=== PATIENT | female | born 1995 | race Caucasian/White ===

== ENCOUNTER → 2016-11-16 07:35 | Outpatient (CLI) | payer MEDICAID ==
[2016-11-16 08:22] LABS: BASOPHILS 0.1 % (0-2); EOSINOPHILS 1.5 % (0-7); HEMOGLOBIN 11.8 g/dL (12-16); IMMATURE GRANULOCYTES 0.3 % (0-5); LYMPHOCYTES 25.4 % (15-50); MCH 30.4 pg (26.0-34.0); MCHC 33.7 g/dL (31.0-37.0); MCV 90.2 fL (80.0-100.0); MEAN PLATELET VOLUME 10.3 fL (7.4-10.4); MONOCYTES 9.8 % (2-11); NEUTROPHILS 62.9 % (40-80); RBC 3.88 10x6/uL (4.00-5.40); RDW 13.4 % (11.5-14.5); WBC 10.2 10x3/uL (4.8-10.8)
[2016-11-16 08:28] LABS: PLATELET COUNT 203 10x3/uL (130-400)
[2016-11-16 08:33] LABS: COLOR YELLOW (YELLOW)
[2016-11-16 08:34] LABS: APPEARANCE HAZY (CLEAR); BILIRUBIN NEGATIVE (NEGATIVE); GLUCOSE NEGATIVE (NEGATIVE); KETONE NEGATIVE (NEGATIVE); LEUKOCYTE ESTERASE 2+ (NEGATIVE); NITRITE POSITIVE (NEGATIVE); PH 5.5 (5.0-6.0); PROTEIN TRACE mg/dL (NEGATIVE); SPECIFIC GRAVITY 1.015 (1.005-1.020); UROBILINOGEN NORMAL (NORMAL)
[2016-11-16 08:39] LABS: BACTERIA MANY /hpf (NONE SEEN); EPITHELIAL CELLS OCC /hpf (0-5); HYALINE CAST RARE /lpf (NONE SEEN); RED CELLS - URINE 0-5 /hpf (0-5); WHITE CELLS - URINE >50 /hpf (0-5)
[2016-11-16 08:41] LABS: UDS - AMPHET POSITIVE QUAL (NEGATIVE); UDS - BARB NEGATIVE QUAL (NEGATIVE); UDS - BENZO NEGATIVE QUAL (NEGATIVE); UDS - COCAINE NEGATIVE QUAL (NEGATIVE); UDS - METH NEGATIVE QUAL (NEGATIVE); UDS - OPIATE NEGATIVE QUAL (NEGATIVE); UDS - PCP NEGATIVE QUAL (NEGATIVE); UDS - THC NEGATIVE QUAL (NEGATIVE)
== END | disposition home or self-care (01) ==
LOC: D.LDO 07:35
PROVIDERS: Obstetrics & Gynecology
DX: Z34.93 Encounter for supervision of normal pregnancy, unspecified, third trimester (principal); Z3A.39 39 weeks gestation of pregnancy; R10.9 Unspecified abdominal pain

== ENCOUNTER 2016-11-30 22:47 | Outpatient (CLI) | payer MEDICAID ==
[2016-11-30 23:28] LABS: APPEARANCE HAZY (CLEAR); BACTERIA MANY /hpf (NONE SEEN); BILIRUBIN NEGATIVE (NEGATIVE); COLOR YELLOW (YELLOW); EPITHELIAL CELLS NSEEN /hpf (0-5); GLUCOSE NEGATIVE (NEGATIVE); KETONE NEGATIVE (NEGATIVE); LEUKOCYTE ESTERASE 1+ (NEGATIVE); NITRITE POSITIVE (NEGATIVE); PROTEIN NEGATIVE (NEGATIVE); RED CELLS - URINE NONE SEEN /hpf (0-5); UDS - AMPHET POSITIVE QUAL (NEGATIVE); UDS - BARB NEGATIVE QUAL (NEGATIVE); UDS - BENZO NEGATIVE QUAL (NEGATIVE); UDS - COCAINE NEGATIVE QUAL (NEGATIVE); UDS - METH NEGATIVE QUAL (NEGATIVE); UDS - OPIATE NEGATIVE QUAL (NEGATIVE); UDS - PCP NEGATIVE QUAL (NEGATIVE); UDS - THC NEGATIVE QUAL (NEGATIVE); UROBILINOGEN NORMAL (NORMAL)
== END 2016-12-01 01:03 | disposition home or self-care (01) ==
LOC: D.LDO 22:47 → D.LD 23:29 → D.LDO 12-01 01:03
PROVIDERS: Obstetrics & Gynecology
DX: O26.893 Other specified pregnancy related conditions, third trimester (principal); Z3A.36 36 weeks gestation of pregnancy

== ENCOUNTER 2016-12-21 05:31 | Inpatient (IN) | payer MEDICAID ==
[~2016-12-21] VITALS: Ht 165.1 cm; Wt 72.6 kg
[2016-12-21] MEDS ORDERED: PRENAVITE1 TAB PO (05:41)
[2016-12-21 05:47] VITALS: BP 112/78; Ht 165.1 cm; Wt 72.6 kg
[2016-12-21 06:11] LABS: HEMATOCRIT 41.7 % (36.0-48.0); HEMOGLOBIN 14.1 g/dL (12-16); MCH 29.6 pg (26.0-34.0); MCHC 33.8 g/dL (31.0-37.0); MCV 87.6 fL (80.0-100.0); MEAN PLATELET VOLUME 11.5 fL (7.4-10.4); RBC 4.76 10x6/uL (4.00-5.40); RDW 13.8 % (11.5-14.5); WBC 11.8 10x3/uL (4.8-10.8)
[2016-12-21 07:32] LABS: UDS - AMPHET POSITIVE QUAL (NEGATIVE); UDS - BARB NEGATIVE QUAL (NEGATIVE); UDS - BENZO NEGATIVE QUAL (NEGATIVE); UDS - COCAINE NEGATIVE QUAL (NEGATIVE); UDS - METH NEGATIVE QUAL (NEGATIVE); UDS - OPIATE NEGATIVE QUAL (NEGATIVE); UDS - PCP NEGATIVE QUAL (NEGATIVE); UDS - THC NEGATIVE QUAL (NEGATIVE)
[2016-12-21 13:44] VITALS: BP 130/76
--- NOTE | 2016-12-21 13:45 | NUR ---
vs done. pt states she would like to sleep for a bit. ambulated to 1278- tolerated well.
--- NOTE | 2016-12-21 15:09 | NUR ---
LATE ENTRY 0945 CM RECEIVED A TELEPHONE CALL FROM THE HOSPITAL TRAVEL SERVICES PROFESSIONAL. SHE HAD A MR HECTOR DAVIS ON THE PHONE REGARDING ASUNCION POWELL AND HER . SHE TRANSFERED HIM TO THE . I EXPLAINED I COULD NOT GIVE ANY INFORMATION REGARDING PATIENTS DUE TO THE HIPPA LAWS. HE IS AWARE OF HIPPA. HE STATED HE KNEW SHE HAD DELIVERED HER BABY AND SHE HAD BEEN TAKING DRUGS. HE WANTED TO KNOW WHAT DRUGS WERE FOUND. HE STATED HE AND HIS WERE ADOPTING THE BABY. CM ADVISED IF HE WAS AN ADOPTING PARENT THE HOSPITAL WOULD NEED A COPY OF THEIR PAPERWORK AND CONTACT FROM HIS WAREHOUSE HAND. CM DID NOT CONFIRM OR DENY PATIENT'S PRESENCE OR A DELIVERY. HE STATED HE WAS TRYING TO GET A HOLD OF HIS WAREHOUSE HAND BUT IT WAS DIFFICULT BECAUSE IT WAS A THURSDAY. HE SAID OKAY. CM CALLED THE NURSING POSITION CLASSIFICATION SPECIALIST, DARSHANA TO ADVISE OF ABOVE. SHE REPORTEDLY HAD RECEIVED SOME INFORMATION IN HER AM REPORT. CM SPOKE WITH THE [facility] NURSE, SHALINI. SHE HAD NOT HAD AN OPPORTUNITY TO DOCUMENT BUT STATED THE L&D NURSES WOULD HAVE AN UPDATE. 1430 NO DOCUMENTATION TO CIRCUMSTANCE IN [facility]. TC TO L&D. THEY HAVE A DIFFERENT SYSTEM TO DOCUMENT IN. NURSE STATED CM COULD COME TO REVIEW NOTES. CM TO L&D. UNABLE TO REVIEW NOTES. WILL REFER ANY FURTHER QUESTIONS OR CALLS TO L&D OR NURSING POSITION CLASSIFICATION SPECIALIST.
--- NOTE | 2016-12-21 15:09 | NUR ---
up to bathroom- voided lg amt. pericare with betadine and warm water teaching done. pt requesting pain medication for pain lower back.
--- NOTE | 2016-12-21 16:25 | NUR ---
HOSPITAL FERMENTING CELLAR DROPPER CALLED ASKING IF PATIENT IS CONFIDENTIAL AND IF PHONE CALL FROM "[employer] PARENTS" CAN BE FORWARDED. ASKED PATIENT IF SHE WANTS TO BE CONFIDENTIAL STATES "NO". ASKED PATIENT IF IT IS OK IF SHE RECEIVE CALLS FROM THESE PEOPLE STATES "I JUST TALKED TO THEM ON FACEBOOK". ASKED PATIENT AGAIN IF THEY WILL ACCEPT CALLS, STATES "YES". HOSPITAL FERMENTING CELLAR DROPPER NOTIFIED THAT IT IS OK BY PATIENT THAT SHE RECEIVE PHONE CALLS, INCLUDING ABOVE.
[2016-12-21 18:10] VITALS: BP 133/88
--- NOTE | 2016-12-21 18:14 | NUR ---
sitting up in bed holding . vs done. states that pain in back is better since ibuprofen. rates pain a 3 on scale of 0-10.
--- NOTE | 2016-12-21 19:30 | NUR ---
PT. SITTING UP IN BED. ASSESSMENT DONE. SALINE LOCK NOTED IN LT FOREARM, FUNDUS FIRM U/1 AND LOCHIA RUBRA MOD. PT. RATES PAIN A 0. RELATES THAT SHE HAS BEEN HUNGRY ALL DAY. REVIEWED WITH PT. NOURISHMENTS AVAILABLE. BREATH SOUNDS CLEAR AND BOWEL SOUNDS AUDIBLE.
--- NOTE | 2016-12-21 19:45 | NUR ---
CRACKERS GIVEN WITH PEANUT BUTTER AND ICE CREAM SERVED. MALE IN ROOM WITH PT. PT. STATES SHE DESIRES TO SLEEP PRIOR TO RETURNING TO ROOM.
--- NOTE | 2016-12-21 21:06 | NUR ---
LYING IN BED HOLDING . PT. DENIES ANY NEEDS. MALE VISITOR IN SHOWER.
--- NOTE | 2016-12-21 21:30 | NUR ---
LYING IN BED ON LT SIDE WITH BESIDE HER IN BED. MILK OF MAGNESIA GIVEN ORDERED. PT. DENIES ANY NEEDS.
[2016-12-21 21:31] VITALS: BP 122/70
--- NOTE | 2016-12-21 22:31 | NUR ---
AMBULATORY OFF UNIT.
--- NOTE | 2016-12-21 23:32 | NUR ---
REQUESTING LEMON [place] DRINK . SAME SERVED. PT. WITH LYING BESIDE HER IN BED. PT. AWAKE AND ORIENTED. DENIES ANY PAIN. MALE LYING ON SOFA.
--- NOTE | 2016-12-22 00:20 | NUR ---
MAN TO DESK STATING HE IS FATHER TO ASUNCION. DIRECTED TO ROOM.
--- NOTE | 2016-12-22 01:08 | NUR ---
PT CALLS VIA CL REQUESTING SPRITE AND ICE. RN TO BEDSIDE WITH SODA. MALE VISITOR WHO STATES THAT HE IS THE FOB IS LAYING IN BED WITH PT. A SECOND MALE VISITOR IS SITTING IN CHAIR AT BEDSIDE WATCHING TV. PT ASKS WHAT OTHER DRINKS AND SNACKS ARE AVAILABLE FOR HER AND HER VISITORS. RN INFORMED PT THAT DRINKS AND SNACKS ARE FOR PATIENT'S ONLY AND NOT FOR VISITORS. INSTRUCTED BOTH MALE VISITORS ON VENDING MACHINE LOCATIONS WITH UNDERSTANDIND VERBALIZED. PT DENIES PAIN AND ADDITIONAL NEEDS AT THIS TIME. IN PT ARMS. BED IN LOW POSITIOIN WITH UPPER SIDE RAILS RAISED X2. CL AND PHONE WITHIN REACH. WILL CONT TO MONITOR AND ASSIST PRN.
--- NOTE | 2016-12-22 02:20 | NUR ---
PT. LYING IN BED WITH MALE . PT. WITH EYES CLOSED AND RESPIRATIONS REGULAR. LIGHTS REMAIN ON IN ROOM AND TV PLAYING.
--- NOTE | 2016-12-22 05:00 | NUR ---
SITTING UP IN BED CHANGING . CHEERFUL. DENIES ANY PAIN NOR ANY NEEDS.
--- NOTE | 2016-12-22 05:25 | NUR ---
PT. REQUESTING SOMETHING TO EAT. CRACKERS AND PUDDING GIVEN. PT. WITH UNWRAPPED AND ATTEMPTING TO RECOVER . INQUIRED WHERE INFANT HAT WAS SINCE WAS NOT ON HEAD. INFORMED PT. THAT ROOM WAS TOO COLD FOR . PT. REMARKS " I AM COLD TOO." THERMOSTAT IN ROOM SET ON 65. TEMP. RESET TO 72 DEGREES. EXPLAINED IMPORTANCE OF KEEPING INFANT COVERED AND WARM. PT. STATED UNDERSTANDING.
[2016-12-22 05:44] LABS: HEMATOCRIT 39.9 % (36.0-48.0); HEMOGLOBIN 13.1 g/dL (12-16); MCH 29.4 pg (26.0-34.0); MCHC 32.8 g/dL (31.0-37.0); MEAN PLATELET VOLUME 11.3 fL (7.4-10.4); RBC 4.45 10x6/uL (4.00-5.40); WBC 12.3 10x3/uL (4.8-10.8)
[2016-12-22 05:49] LABS: MCV 89.7 fL (80.0-100.0)
[2016-12-22 07:28] VITALS: BP 120/71
--- NOTE | 2016-12-22 07:30 | NUR ---
ASSESSMENT DONE. PT SITTING UP IN BED HOLDING . PT REQUESTING THAT INFANT GO TO NURSERY SO SHE CAN SLEEP A BIT. CO CRAMPING AND REQUESTS IBUPROFEN- RATES PAIN A 6 ON SCALE OF 0-10. FUNDUS U2/FIRM. MOD LOCHIA NOTED ON PAD- PT STATES SHE HAS NOT CHANGED HER PAD IN A BIT.
--- NOTE | 2016-12-22 07:40 | OP ---
PATIENT NAME: ASUNCION POWELL MEDICAL RECORD: [id number] :93 LOCATION:[facility] ADMISSION DATE:12/21/16 SURGEON: BOYD CHUN MD DATE OF OPERATION: 12/21/2016 Delivery Note Spontaneous vaginal delivery of female weighing 6 pounds 14-1/2 ounces, 8 and 9 Apgars. No episiotomy, no laceration. Epidural anesthesia. Cord pH drawn and pending. ESTIMATED BLOOD LOSS: 400 cc. COMPLICATIONS OF DELIVERY: None. TRANSINT:[id number] Voice Confirmation ID: [id number] DOCUMENT ID: [id number] BOYD CHUN MD at 0740 CC: [id number] DICTATION DATE: 12/21/1634 ANIMAL CARETAKER: 12/21/16 1119 ADM IN [place] [id number] [place] [address]
--- NOTE | 2016-12-22 07:45 | NUR ---
DR CHUN IN UNIT TO SEE PT.
--- NOTE | 2016-12-22 10:15 | NUR ---
Excuse to prove pt was a patient at this time faxed to Judge Castaneda, [address], attn to Jailene.
--- NOTE | 2016-12-22 10:30 | NUR ---
Verbal and written d/c instructions gone over with pt. written script provided for Motrin 600mg and Sprintec 3 packages with instructions on each. Denies any questions about instructions. She does have questions about hold per DHS and rooming in options. Tita Rivers rn from nursery notified and will address questions about infant. Rooming in paper work given so that pt can read over.
--- NOTE | 2016-12-22 11:00 | NUR ---
READ ROOMING IN FORM TO MOTHER THEN MOTHER INDICATED SHE UNDERSTOOD INSTRUCTIONS AND SIGNED FORM AND GAVE PHONE NUMBERS ON HOW SHE MAY BE REACHED. REMINDED MOTHER SHE MAY NOT LEAVE PREMISES.
--- NOTE | 2016-12-22 15:28 | NUR ---
Patient Name: MACEY POWELL Admission Status: Accout number: [id number] Admission Date: 12-21-2016 : 12-21-2016 Admission Diagnosis: Attending: RUDDY CALVILLO Current LOS: 1 Anticipated DC Date: 12-23-2016 Planned Disposition: [facility] Custody Primary Insurance: MEDICAID [place] PENDING Baby's Full Name: Bradley Powell MOB: Mary Powell FOB: Brien Bates [facility] has been consulted by nursery staff. Interview has been completed. Assigned Lieutenant Fire Fighter is Rosana Harmon - [phone] ext. [phone] or [phone]. [facility] will assume custody of at discharge. CM met with both MOB & FOB. MOB keeps her eyes closed while answering questions with short responses. FOB at bedside - he is answers most questions. MOB lives states she lives with her sister. She states she has two other children, ages 5 & 6, that live with their maternal grandmother, but reports her aunt, Mari Mtaa, has legal custody of them. FOB states her home is a safe environment with all working utilities. FOB reports she has adequate transportation. She states she plans to sign up for WIC & section 8 housing after discharge. FOB states he has been in communication with [facility] Lieutenant Fire Fighter, Rosana Harmon. He is hoping they can obtain custody of soon. Answered questions. CM will follow. Engine Dynamometer Tester: Caitlin Weems
[2016-12-23 07:25] LABS: RAPID PLASMA REAGIN Non Reactive (Non Reactive)
== END 2016-12-22 16:00 | disposition home or self-care (01) | DRG 775 ==
LOC: D.LD 05:31
PROVIDERS: ADMIT Obstetrics & Gynecology
PROC: 10E0XZZ Delivery of Products of Conception, External Approach (ICD-10-PCS; principal; 2016-12-21)
DX: O99.324 Drug use complicating childbirth (principal); F15.90 Other stimulant use, unspecified, uncomplicated; Z3A.40 40 weeks gestation of pregnancy; Z37.0 Single live birth

== ENCOUNTER 2017-07-06 02:19 | Emergency (ER) | payer MEDICAID ==
[2016-12-21 05:47] VITALS: BMI 22.0
[~2017-07-06 02:19] MED LIST: PRENAVITE1 TAB PO
== END 2017-07-06 03:04 | disposition home or self-care (01) ==
LOC: D.ER 02:19
DX: L02.31 Cutaneous abscess of buttock (principal)

== ENCOUNTER 2017-08-01 02:35 | Emergency (ER) | payer SELFPAY ==
[2016-12-21 05:47] VITALS: BMI 22.0
[2017-08-01 03:36] LABS: HCG URINE POSITIVE (NEGATIVE)
== END 2017-08-01 04:06 | disposition home or self-care (01) ==
LOC: D.ER 02:35
PROVIDERS: Family Medicine
DX: S00.03XA Contusion of scalp, initial encounter (principal); X58.XXXA Exposure to other specified factors, initial encounter; Y93.55 Activity, bike riding; Y92.410 Unspecified street and highway as the place of occurrence of the external cause; S00.01XA Abrasion of scalp, initial encounter; S01.01XA Laceration without foreign body of scalp, initial encounter; S06.0X9A Concussion with loss of consciousness of unspecified duration, initial encounter; F17.200 Nicotine dependence, unspecified, uncomplicated; Z33.1 Pregnant state, incidental

== ENCOUNTER 2017-08-17 11:29 | Emergency (ER) | payer SELFPAY ==
[2016-12-21 05:47] VITALS: BMI 22.0
== END 2017-08-17 13:38 | disposition home or self-care (01) ==
LOC: D.ER 11:29
DX: J01.90 Acute sinusitis, unspecified (principal)

== ENCOUNTER 2017-11-01 12:10 | Emergency (ER) | payer MEDICAID ==
[~2017-11-01] VITALS: Ht 165.1 cm; Wt 59.1 kg
[2017-11-01 12:12] VITALS: Ht 165.1 cm; Wt 59.1 kg
[2017-11-01 12:46] LABS: BASOPHILS 0.1 % (0-2); EOSINOPHILS 0.6 % (0-7); HEMATOCRIT 36.9 % (36.0-48.0); HEMOGLOBIN 12.6 g/dL (12-16); IMMATURE GRANULOCYTES 0.3 % (0-5); LYMPHOCYTES 23.4 % (15-50); MCHC 34.1 g/dL (31.0-37.0); MCV 90.9 fL (80.0-100.0); MEAN PLATELET VOLUME 9.6 fL (7.4-10.4); MONOCYTES 7.8 % (2-11); NEUTROPHILS 67.8 % (40-80); PLATELET COUNT 212 10x3/uL (130-400); RBC 4.06 10x6/uL (4.00-5.40); RDW 14.5 % (11.5-14.5); WBC 14.5 10x3/uL (4.8-10.8)
[2017-11-01 12:59] LABS: ALBUMIN 2.7 g/dL (3.4-5.0); ALKALINE PHOSPHATASE 89 U/L (46-116); ALT (SGPT) 14 U/L (10-68); BILIRUBIN - TOTAL 0.61 mg/dL (0.2-1.3); CALC OSMOLALITY 267 mosm/kg (275-300); CALCIUM 8.4 mg/dL (8.5-10.1); CHLORIDE - SERUM 104 mmol/L (98-107); CREATININE - SERUM 0.6 mg/dL (0.6-1.3); GLUCOSE 80 mg/dL (74-106); POTASSIUM - SERUM 3.9 mmol/L (3.5-5.1); PROTEIN - SERUM 6.6 g/dL (6.4-8.2); SODIUM 135 mmol/L (136-145); UREA NITROGEN 11 mg/dL (7-18); eGFR NON AFRICAN AMERICAN > 90 mL/min (90-120)
[2017-11-01 13:02] LABS: APPEARANCE TURBID (CLEAR); COLOR YELLOW (YELLOW); GLUCOSE NEGATIVE (NEGATIVE); KETONE NEGATIVE (NEGATIVE); NITRITE NEGATIVE (NEGATIVE); PH 6.5 (5.0-6.0); PROTEIN 3+ mg/dL (NEGATIVE); SPECIFIC GRAVITY 1.015 (1.005-1.020); UROBILINOGEN NORMAL (NORMAL)
[2017-11-01 13:03] LABS: BILIRUBIN NEGATIVE (NEGATIVE)
[2017-11-01 13:06] LABS: BACTERIA MODERATE /hpf (NONE SEEN); EPITHELIAL CELLS RARE /hpf (0-5); WHITE CELLS - URINE >50 /hpf (0-5)
[2017-11-01 13:53] LABS: UDS - AMPHET POSITIVE QUAL (NEGATIVE); UDS - BARB NEGATIVE QUAL (NEGATIVE); UDS - BENZO NEGATIVE QUAL (NEGATIVE); UDS - COCAINE POSITIVE QUAL (NEGATIVE); UDS - OPIATE NEGATIVE QUAL (NEGATIVE); UDS - PCP NEGATIVE QUAL (NEGATIVE); UDS - THC NEGATIVE QUAL (NEGATIVE)
[2017-11-01 14:19] LABS: APPEARANCE TURBID (CLEAR); BILIRUBIN NEGATIVE (NEGATIVE); COLOR YELLOW (YELLOW); GLUCOSE NEGATIVE (NEGATIVE); KETONE SMALL mg/dL (NEGATIVE); NITRITE NEGATIVE (NEGATIVE); PROTEIN 3+ mg/dL (NEGATIVE); SPECIFIC GRAVITY 1.015 (1.005-1.020); UROBILINOGEN NORMAL (NORMAL)
[2017-11-01 14:23] LABS: BACTERIA MODERATE /hpf (NONE SEEN); EPITHELIAL CELLS OCC /hpf (0-5); WHITE CELLS - URINE >50 /hpf (0-5)
[2017-11-01] MEDS ORDERED: MACROBID100 MG PO (14:42)
[2017-11-01 15:18] VITALS: BP 114/78
== END 2017-11-01 15:18 | disposition home or self-care (01) ==
LOC: D.ER 12:10
PROVIDERS: Emergency Medicine
DX: O23.42 Unspecified infection of urinary tract in pregnancy, second trimester (principal); Z3A.00 Weeks of gestation of pregnancy not specified; F15.10 Other stimulant abuse, uncomplicated; F14.10 Cocaine abuse, uncomplicated; N28.89 Other specified disorders of kidney and ureter; R31.9 Hematuria, unspecified; R10.2 Pelvic and perineal pain; R30.0 Dysuria

== ENCOUNTER → 2017-12-30 18:09 | Outpatient (CLI) | payer MEDICAID ==
[2017-11-01 12:12] VITALS: BMI 21.6
[~2017-12-30 18:09] MED LIST changes: +MACROBID100 MG PO
[2017-12-30 19:34] LABS: UDS - AMPHET POSITIVE QUAL (NEGATIVE); UDS - BARB NEGATIVE QUAL (NEGATIVE); UDS - BENZO NEGATIVE QUAL (NEGATIVE); UDS - COCAINE NEGATIVE QUAL (NEGATIVE); UDS - OPIATE NEGATIVE QUAL (NEGATIVE); UDS - PCP NEGATIVE QUAL (NEGATIVE); UDS - THC NEGATIVE QUAL (NEGATIVE)
[2017-12-30 19:36] LABS: APPEARANCE CLEAR (CLEAR); BILIRUBIN NEGATIVE (NEGATIVE); COLOR YELLOW (YELLOW); GLUCOSE NEGATIVE (NEGATIVE); KETONE NEGATIVE (NEGATIVE); NITRITE NEGATIVE (NEGATIVE); PROTEIN NEGATIVE (NEGATIVE); SPECIFIC GRAVITY 1.015 (1.005-1.020); UROBILINOGEN NORMAL (NORMAL)
[2017-12-30 19:37] LABS: BACTERIA FEW /hpf (NONE SEEN); EPITHELIAL CELLS OCC /hpf (0-5); WHITE CELLS - URINE 0-5 /hpf (0-5)
== END | disposition home or self-care (01) ==
LOC: D.LDO 18:09
PROVIDERS: Obstetrics & Gynecology
DX: O26.899 Other specified pregnancy related conditions, unspecified trimester (principal); Z3A.00 Weeks of gestation of pregnancy not specified; R10.30 Lower abdominal pain, unspecified; M54.5 Low back pain

== ENCOUNTER → 2018-01-30 19:30 | Outpatient (CLI) | payer MEDICAID ==
[2017-11-01 12:12] VITALS: BMI 21.6
[2018-01-30 19:54] LABS: APPEARANCE CLEAR (CLEAR); BILIRUBIN NEGATIVE (NEGATIVE); COLOR YELLOW (YELLOW); GLUCOSE NEGATIVE (NEGATIVE); KETONE NEGATIVE (NEGATIVE); NITRITE NEGATIVE (NEGATIVE); PROTEIN NEGATIVE (NEGATIVE); UROBILINOGEN NORMAL (NORMAL)
[2018-01-30 20:06] LABS: UDS - AMPHET NEGATIVE QUAL (NEGATIVE); UDS - BARB NEGATIVE QUAL (NEGATIVE); UDS - BENZO NEGATIVE QUAL (NEGATIVE); UDS - COCAINE NEGATIVE QUAL (NEGATIVE); UDS - OPIATE NEGATIVE QUAL (NEGATIVE); UDS - PCP NEGATIVE QUAL (NEGATIVE); UDS - THC NEGATIVE QUAL (NEGATIVE)
== END | disposition home or self-care (01) ==
LOC: D.LDO 19:30
PROVIDERS: Obstetrics & Gynecology
DX: O26.893 Other specified pregnancy related conditions, third trimester (principal); Z3A.31 31 weeks gestation of pregnancy

== ENCOUNTER 2018-03-06 21:21 | Outpatient (CLI) | payer MEDICAID ==
[2017-11-01 12:12] VITALS: BMI 21.6
[2018-03-06 21:49] LABS: APPEARANCE CLEAR (CLEAR); BILIRUBIN NEGATIVE (NEGATIVE); COLOR YELLOW (YELLOW); GLUCOSE NEGATIVE (NEGATIVE); KETONE NEGATIVE (NEGATIVE); NITRITE NEGATIVE (NEGATIVE); PROTEIN NEGATIVE (NEGATIVE); UROBILINOGEN NORMAL (NORMAL)
[2018-03-06 21:53] LABS: BACTERIA FEW /hpf (NONE SEEN); RED CELLS - URINE 0-5 /hpf (0-5); WHITE CELLS - URINE 0-5 /hpf (0-5)
[2018-03-06 22:14] LABS: UDS - AMPHET POSITIVE QUAL (NEGATIVE); UDS - BARB NEGATIVE QUAL (NEGATIVE); UDS - BENZO NEGATIVE QUAL (NEGATIVE); UDS - COCAINE NEGATIVE QUAL (NEGATIVE); UDS - OPIATE NEGATIVE QUAL (NEGATIVE); UDS - PCP NEGATIVE QUAL (NEGATIVE); UDS - THC NEGATIVE QUAL (NEGATIVE)
[2018-03-06 23:42] LABS: BASOPHILS 0.2 % (0-2); EOSINOPHILS 1.2 % (0-7); HEMATOCRIT 34.7 % (36.0-48.0); HEMOGLOBIN 11.6 g/dL (12-16); IMMATURE GRANULOCYTES 0.1 % (0-5); LYMPHOCYTES 29.5 % (15-50); MCH 29.2 pg (26.0-34.0); MCHC 33.4 g/dL (31.0-37.0); MCV 87.4 fL (80.0-100.0); MEAN PLATELET VOLUME 10.4 fL (7.4-10.4); MONOCYTES 12.9 % (2-11); NEUTROPHILS 56.1 % (40-80); PLATELET COUNT 183 10x3/uL (130-400); RBC 3.97 10x6/uL (4.00-5.40); RDW 14.3 % (11.5-14.5); WBC 8.1 10x3/uL (4.8-10.8)
[2018-03-07] MEDS ORDERED: PRENAVITE1 TAB PO (01:32)
== END 2018-03-07 01:41 | disposition home or self-care (01) ==
LOC: D.LDO 21:21 → D.LD 23:15 → D.LDO 03-07 01:41
PROVIDERS: Obstetrics & Gynecology
DX: O26.899 Other specified pregnancy related conditions, unspecified trimester (principal); Z3A.00 Weeks of gestation of pregnancy not specified

== ENCOUNTER 2018-03-29 13:52 | Inpatient (IN) | payer MEDICAID ==
[2018-03-29] VITALS (10 sets, daily range): BP systolic 106–141; BP diastolic 67–92; Ht 165.1 cm; Wt 79.4 kg
[~2018-03-29] VITALS: Ht 165.1 cm; Wt 79.4 kg
[2018-03-29 14:32] LABS: HEMATOCRIT 37.4 % (36.0-48.0); HEMOGLOBIN 12.4 g/dL (12-16); MCHC 33.2 g/dL (31.0-37.0); MCV 84.4 fL (80.0-100.0); MEAN PLATELET VOLUME 11.9 fL (7.4-10.4); RBC 4.43 10x6/uL (4.00-5.40); RDW 14.3 % (11.5-14.5); WBC 9.5 10x3/uL (4.8-10.8)
[2018-03-29 14:36] LABS: UDS - AMPHET POSITIVE QUAL (NEGATIVE); UDS - BARB NEGATIVE QUAL (NEGATIVE); UDS - BENZO NEGATIVE QUAL (NEGATIVE); UDS - COCAINE NEGATIVE QUAL (NEGATIVE); UDS - OPIATE NEGATIVE QUAL (NEGATIVE); UDS - PCP NEGATIVE QUAL (NEGATIVE); UDS - THC NEGATIVE QUAL (NEGATIVE)
--- NOTE | 2018-03-29 17:41 | NUR ---
EPIDURAL REMAINS IN PLACE. DERMATOME AT T6 B/L.
--- NOTE | 2018-03-29 17:50 | NUR ---
PATIENT REFUSING TO LEAVE MONITORING EQUIPMENT IN PLACE. STATES "I CAN'T BREATHE" AND APPEARS ANXIOUS. REAPPLIED PULSE OX, SAT 98% ON RA BREATH SOUNDS ARE CLEAR BILATERALLY. ATTEMPTED TO EDUCATE PATIENT ON SLOW BREATHING TECHNIQUES WHEN SHE STATED "I CAN'T FUCKING BREATHE SO UNLESS YOU ARE GOING TO GIVE ME SOME AIR THEN GET THE FUCK OUT OF MY ROOM AND GO FIND SOMEONE WHO WILL HELP ME". DR IGLESIAS AT THE BEDSIDE SPEAKING WITH PATIENT AT THIS TIME. WILL CONTINUE TO MONITOR.
--- NOTE | 2018-03-29 18:20 | NUR ---
RECEIVED PT FROM VIA BED. PHYSICAL ASSESSMENT DONE, SEE SHIFT ASSESSMENT. 18G IV IN RIGHT HAND PATENT WITH NS WITH 20UNITS PITOCIN INFUSING VIA PUMP AT 125ML/HR. EPIDURAL REMAINS IN PLACE AND INFUSING VIA PUMP. PT RATEA PAIN 4/10. FUNDUS FIRM, U/U. SCANT RUBRA LOCHIA NOTED ON NIMCO PAD, NO CLOTS EXPRESSED. BIKINI LINE INCISION COVERED WITH ABD DRESSING NOTED. DRESSING C/D/I. ARCEO IN PLACE AND DRAINING TO GRAVITY. 50MLS OF CLEAR YELLOW URINE NOTED IN COLLECTION CHAMBER. SCDS CONNECTED AT THIS TIME TO PUMP. ICE CHIPS PROVIDED PER PT REQUEST. PT DENIES FURTHER NEEDS.
--- NOTE | 2018-03-29 19:00 | NUR ---
REPORT GIVEN TO 7 P SHIFT
--- NOTE | 2018-03-29 19:20 | NUR ---
SHIFT ASSESSMENT COMPLETED. PT LUNGS CTAB, HEART RRR, VOICES ANXIETY-INQUIRES ABOUT MED ORDERS, DISCUSSED PLAN OF CARE, TO CHANGE EPIDURAL TO DISTRICT LEADER DILAUDID, VISTARIL ORDER OBTAINED-WAITING ON PHARMACY TO PROVIDE MED PER MD ORDERS, PT STATES UNDERSTANDING. ABD SOFT,FUNDUS FIRM AT U/1 MIDLINE, LOCHIA RUBRA MODERATE AMOUNT, PERICARE PROVIDED, ARCEO CARE GIVEN, ARCEO TO GRAVITY DRAINAGE WITH 150ML URINE EMPTIED FROM CHAMBER. ABLE TO MOVE B LE, NEGATIVE MARIA E'S SIGN B. SCDS ON AND FUNCTIONING TO BLE, RIGHT HAND PIV BENIGN TO INSPECTION INFUSING WITHOUT DIFFICULTY PER IVAC PUMP. PT CHEWING ICE AT PRESENT DESIRES FOOD, REVIEWED DIET ORDERS WITH PT, PT STATES "OKAY". CALL LIGHT IN EASY REACH, CONTINUE TO MONITOR.
--- NOTE | 2018-03-29 19:49 | NUR ---
EPIDURAL DC'D, BLACK TIP INTACT AND SHOWN TO PT TO VERIFY REMOVAL, BANDAID APPLIED OVER SITE TO BACK. ATTENDING PHYSICIAN DILAUDID INITIATED PER MD ORDERS, ATTENDING PHYSICIAN BUTTON PROVIDED TO PT WHO IMMEDIATELY USES. PT C/O ANXIETY-"DID MY DOCTOR PRESCRIBE ME ANYTHING FOR MY ANXIETY?" INFORMED PT THAT THIS RN WILL ADMINISTER MEDICAITON VIA INJECTION NOW, PT STATES "OKAY." INSTRUCTED PT THAT MAY HELP WITH ITCHING TO CHEST. PT STATES "THAT'S GOOD THANKS". CALL LIGHT IN EASY REACH, PROVIDED PT WITH CHICKEN BROTH PER REQUEST ALONG WITH CUP OF ICE. NO OTHER NEEDS VOICED AT THIS TIME.
--- NOTE | 2018-03-29 20:45 | NUR ---
CHICKEN BROTH SERVED TO PT. PT. LYING ON BACK WITH HOB AT 30 DEGREES. REQUESTED SOCKS FOR FEET. SAME GIVEN.
--- NOTE | 2018-03-29 20:58 | NUR ---
REVIEWED PT STATUS WITH DR SÁNCHEZ-PT STATES VISTARIL NOT HELPING MUCH WITH HER ANXIETY, ALSO REPORTED USE OF VISTARIL, DC OF EPIDURAL AND SALES REPRESENTATIVE FACILITY SERVICES INITIATION SHORTLY AFTER INITIAL ASSESSMENT AND BEDSIDE REPORT THIS PM. NEW ORDERS RECEIVED, NOTED, AND VERIFIED VIA TORB.
--- NOTE | 2018-03-29 21:45 | NUR ---
PT RESTING WITH EYES CLOSED ON ROUNDS, NAD NOTED, FAMILY PRESENT IN ROOM. CALL LIGHT IN EASY REACH, CONTINUE TO MONITOR.
[2018-03-29 22:31] LABS: BASOPHILS 0.1 % (0-2); EOSINOPHILS 0.9 % (0-7); HEMATOCRIT 34.4 % (36.0-48.0); HEMOGLOBIN 11.2 g/dL (12-16); IMMATURE GRANULOCYTES 0.2 % (0-5); LYMPHOCYTES 16.3 % (15-50); MCH 27.9 pg (26.0-34.0); MCHC 32.6 g/dL (31.0-37.0); MCV 85.6 fL (80.0-100.0); MEAN PLATELET VOLUME 11.5 fL (7.4-10.4); MONOCYTES 9.3 % (2-11); NEUTROPHILS 73.2 % (40-80); PLATELET COUNT 189 10x3/uL (130-400); RBC 4.02 10x6/uL (4.00-5.40); RDW 14.4 % (11.5-14.5)
[2018-03-29 22:32] LABS: WBC 12.9 10x3/uL (4.8-10.8)
--- NOTE | 2018-03-29 22:45 | NUR ---
HOURLY ROUNDING COMPLETED, PT HAS FRUIT CHECKER BUTTON IN HAND, VSS, RESP EVEN AND UNLABORED, PERICARE/ARCEO CARE PROVIDED, DENIES NEEDS AT PRESENT. CONTINUE TO MONITOR.
--- NOTE | 2018-03-29 23:37 | NUR ---
ON ROUNDS, PT ROUSES WITH RN ENTRY TO ROOM, PERICARE/ARCEO CARE COMPLETED, FUNDUS FIRM AT U/1 AND MIDLINE, LOCHIA RUBRA MODERATE AMOUNT, NO CLOTS OBSERVED. REPORTS PAIN 7-8 ON NUMERIC PAIN SCALE, KETORALAC 30MG SIVP GIVEN PER MD ORDERS TO RIGHT PIV HAND SITE, SITE BENIGN TO INSPECTION, PT USING HYDROGRAPHIC SURVEYOR BUTTON WELL. REPORTS ANXIETY, DESIRES ADDITIONAL MEDICATION. INTERNAL COMBUSTION ENGINE ASSEMBLER NOTIFIED OF NEED FOR OVERRIDE IN PYXIS, MADE PT AWARE OF DELAY. PT STATES UNDERSTANDING, EMPTIED 400ML URINE FROM ARCEO, ICE PACK OVERLAY CHANGED, CUP OF CRUSHED ICE PROVIDED ALONG WITH JELLO UPON REQUEST. CALL LIGHT IN EASY REACH, CONTINUE TO MONITOR.
--- NOTE | 2018-03-30 00:15 | NUR ---
PT RESTING WITH EYES CLOSED ON ROUNDS AND PAIN REASSESSMENT, DID NOT ROUSE FROM SLEEP. RESP EVEN AND UNLABORED, NO PHYSICAL S/SX PAIN OBSERVED.
--- NOTE | 2018-03-30 01:16 | NUR ---
CHANGED OUT BARTENDER SERVER PUMP DUE TO CONSTANT ALARMING. PT NOW WITH NEW BARTENDER SERVER PUMP AND DEMONSTRATES USE OF BUTTON-PROVIDED WITH ANOTHER CHICKEN BROTH PER REQUEST, ROOM TEMP ADJUSTED PER PT REQUEST, POSITIONED TO COMFORT, HOB ELEVATED, SIDE RAILS UP X2, BED IN LOW POSITION, BRAKES LOCKED, CONTINUE TO MONITOR.
[2018-03-30 03:28] VITALS: BP 126/79
--- NOTE | 2018-03-30 03:29 | NUR ---
ROUND COMPLETED, VSS, TEMP 99.0 ORALLY, PT RESTING WITH EYES CLOSED ON ENTRY TO ROOM, ROUSES TO VERBAL STIMULI, RESP EVEN AND UNLABORED, NO S/SX ANXIETY NOTED, REFUSES PERICARE AT THIS TIME, ARCEO EMPTIED OF 250ML URINE, PERSONAL ITEMS WITHIN EASY REACH OF PT, CALL LIGHT AND SIGNAL MECHANIC BUTTON NEAR HANDS, NO OTHER NEEDS VOICED AT THIS TIME, CONTINUE TO MONITOR.
--- NOTE | 2018-03-30 05:21 | NUR ---
ROUNDS COMPLETED, PT RESTING WITH EYES CLOSED SUPINE WITH HOB ELEVATED 30 DEGREES, NAD NOTED, NO PHYSICAL S/SX PAIN OBSERVED, CALL LIGHT IN EASY REACH. SIDE RAILS UP X2.
--- NOTE | 2018-03-30 05:54 | NUR ---
C/O PAIN RATES 9 OF 10 ON NUMERIC PAIN SCALE ON ROUNDS. KETORALAC 3OMG SIVP ADMINISTERED RIGHT HAND PIV. ENCOURAGED PT TO USE SALES REPRESENTATIVE RURAL POWER NEEDED, PT STATES UNDERSTANDING. FUNDUS FIRM AT U/1 MIDLINE, LOCHIA RUBRA MODERATE AMOUNT, PERICARE/ARCEO CARE PROVIDED, CHUX/PERIPADS REPLACED, EMPTIED 400ML URINE FROM CHAMBER AND RESET TO GRAVITY DRAINAGE, DRESSING TO LOW TRANSVERSE INCISION CDI, DENIES OTHER NEEDS AT THIS TIME, CALL LIGHT IN EASY REACH, SALES REPRESENTATIVE RURAL POWER BUTTON IN REACH. CONTINUE TO MONITOR.
[2018-03-30 06:50] LABS: BASOPHILS 0.1 % (0-2); EOSINOPHILS 0.6 % (0-7); HEMATOCRIT 31.9 % (36.0-48.0); HEMOGLOBIN 10.2 g/dL (12-16); IMMATURE GRANULOCYTES 0.2 % (0-5); LYMPHOCYTES 12.7 % (15-50); MCH 27.4 pg (26.0-34.0); MCV 85.8 fL (80.0-100.0); MEAN PLATELET VOLUME 11.2 fL (7.4-10.4); MONOCYTES 8.5 % (2-11); NEUTROPHILS 77.9 % (40-80); PLATELET COUNT 161 10x3/uL (130-400); RBC 3.72 10x6/uL (4.00-5.40); RDW 14.6 % (11.5-14.5); WBC 14.3 10x3/uL (4.8-10.8)
[2018-03-30 07:30] VITALS: BP 123/62
--- NOTE | 2018-03-30 07:30 | NUR ---
Assessment completed as charted on flowsheet.
--- NOTE | 2018-03-30 09:30 | NUR ---
Pt calls out asking to get up out of bed. this nurse to room, IV saline locked and Tordal 10mg given po. bruce cath removed intact with total of 600ml output. Pt able to move self to sitting up on side of the bed with no assistance needed. Denies nausea and no dizziness, amb to bathroom but unable to void. Warm wet wash cloths provided for lauren care. Asisstance given with lauren pads and mesh underwear, Gown changed. Coffeen pad and chux on bed changed. Pt back to bed per herself. Denies any needs at this time.
--- NOTE | 2018-03-30 10:00 | NUR ---
called to room, pt states that she got up to void and was able to without any complications also explains that her mom and a friend where in the room if she needed them. 400ml noted to collection hat. Saline lock removed per pt request, iv cath noted to be intact. She denies any other needs at this time.
--- NOTE | 2018-03-30 10:40 | NUR ---
Called to room, pt needing her 'ankle monitor' plugged in to charge. States "I can't let this thing " Bed moved so that outlet could be reached. Side rails up x 2 with call light in reach. rates pain at 1/10, lights out per request.
--- NOTE | 2018-03-30 13:08 | NUR ---
Pt mother out to desk asking for a wheelchair so that she can take pt outside to smoke, explained that this was a no smoking facility there fore I could not knowingly let pt leave to go outside. Family member rolls her eyes and walks back to room. Call light immediately goes off and pt request nurse to bedside. this rn to room, pt states she needs a wheelchair because she is going outside to smoke. Explained that although she is allowed to leave her room it is not recommended that she go outside facility to smoke, also reminded pt this was a smoke free facility by law and if she was caught she could be issued a ticket. Offered a nicotine patch to be applied which she refuses. Pt still has saline lock access and has only been up to bathroom once, offered to assist her getting up to bathroom which she also refused. She denies any other needs at this time. Family at bedside. side rails up x 2 with call light in reach.
--- NOTE | 2018-03-30 13:11 | NUR ---
Pt calls out stating that she got up to bathroom. Denies needs
--- NOTE | 2018-03-30 13:12 | NUR ---
Pt off unit via wheelchair with family members.
--- NOTE | 2018-03-30 13:18 | NUR ---
Dr Layton on unit with report given to that pt was currently off unit with family.
--- NOTE | 2018-03-30 13:30 | NUR ---
Pt returns to room, Md notified of this and rounds at this time.
--- NOTE | 2018-03-30 13:40 | NUR ---
Verbal orders recieved for discharge per pt request. Written scripts for Percocet 5/325mg and Motrin 800mg.
--- NOTE | 2018-03-30 13:45 | NUR ---
called to room, pt states that she got up to void and was able to without any complications also explains that her mom and a friend where in the room if she needed them. 400ml noted to collection hat. Saline lock removed per pt request, iv cath noted to be intact. She denies any other needs at this time.
--- NOTE | 2018-03-30 14:15 | NUR ---
Pt mother out to desk states they have called a Notary in to finalize adoption paper work, so pt could not leave until all that was finished. Asked that when she was ready for her discharge to please call for nurse. Pt off unit at this time.
--- NOTE | 2018-03-30 15:01 | MORECARE ---
CASE MANAGEMENT DISCHARGE SUMMARY PATIENT: ASUNCION POWELL UNIT: [id number] ADM DATE: 03/29/18 AGE: 22 : [birth year] SEX: F ROOM/BED: D.1273 AUTHOR: ANGELICA DUPREE PHYSICIAN: REFERRING PHYSICIAN: AB IGLESIAS MD DATE OF SERVICE: 03/30/18 Discharge Plan Patient Name: ASUNCION POWELL Facility: [facility]:[place] : 1995 Planned Disposition: Home Anticipated Discharge Date: 03/30/18 Discharge Date: Expected LOS: 1 Initial Reviewer: [email or web address] Initial Review Date: 03/30/2018 Generated: 03/30/18 4:01 pm Comments DCP- Discharge Planning Updated by [email or web address]: Caitlin Powell on 03/30/18 1:[address] Patient Name: ASUNCION POWELL Admission Status: Elective Accout number: [id number] Admission Date: 03-29-2018 : 1995 Admission Diagnosis: Attending: AB IGLESIAS Current LOS: 1 Anticipated DC Date: Planned Disposition: Primary Insurance: MEDICAID [place] Discharge Planning Comments: CM RECEIVED A PHONE CALL FROM ANDREA HENSON FROM THE NURSERY. STATED MOB WAS LEAVING HOSPITAL, MOB IS DRUG POSITIVE AND BABY IS DRUG POSITIVE. SIXTO STATES THE BABY IS SUPPOSE TO BE ADOPTED. SIXTO CALLED GREGORY TO CHECK ON INFORMATION ABOUT ADOPTION. I THEN SPOKE WITH ANDREA EASLEY IN LABOR AND DELIVERY AND SHE STATED MOB WAS ABOUT TO LEAVE THE HOSPITAL, SHE HAS ON AN ANKLE BRACELET. BABY IS NOT LEAVING WITH MOTHER AND NURSES STATED [facility] HAD BEEN NOTIFIED. I ASKED KAUSHAL IF THE PATIENT WOULD STAY LONG ENOUGH FOR ME TO COME AND INTERVIEW AND ASSES HER AND SHE STATED PATIENT WAS DETERMINED TO LEAVE NOW BUT [facility] HAS BEEN NOTIFIED. CM WILL FOLLOW AND ASSSIST NEEDED WITH DC PLANNING NEEDS. NURSES AND MEDICAL STAFF CAN REACH ME ON MY CELL PHONE IF NEEDED. HOUSE SUPERVISER AND ADMINISTRATION HAVE MY NUMBER IN CASE IT GETS MISPLACED. NURSES STATE BABY WILL NOT BE DISCHARGED TODAY. Potato Picker: Caitlin Powell Patient Name: ASUNCION POWELL Page [id number] at 1501 All edits/amendments must be made on the electronic document DICTATION DATE: 03/30/181500 EDUCATIONAL THERAPIST: BRIAN 03/30/181500 RPT#: [id number] DC DATE: STATUS: ADM IN [facility] [address] [place] [address] END OF REPORT
[2018-03-30] MEDS ORDERED: OXYCODONE-APAP1 T10 PO (15:47)
[2018-03-30] MEDS ORDERED: IBUPROFEN800 MG PO (15:48)
--- NOTE | 2018-03-30 16:30 | NUR ---
pt calls out with request for pain med, rates pain at 9/10. meds given as charted on emar. she also states that she is ready to leave now.
--- NOTE | 2018-03-30 16:45 | NUR ---
Attempt to verbally go over discharge but pt will not stop texting on her phone or yelling at her mom to do things for her. Expressed importance to mom to be alert for s/s of infection, these where gone over also. When pt answered a cell call while nurse was go over pain medication and scripts received. Pt was asked if she wished for instructions to continue or did she wish to read over printed instructions herself. She states that she can "fucking read the shit herself" rolls her eyes and tells person on the phone "this is fucking bullshit I'm ready to get out of here" She does sign paperwork as asked but is getting in to wheelchair as she does. Mother wheels patient out via wheelchair after pt states "Can you take me home now or do I need to find another ride." off unit continue to be on her cell phone.
--- NOTE | 2018-03-31 06:08 | DS ---
PATIENT:ASUNCION POWELL :[birth year] MEDICAL RECORD: [id number] DISCHARGE SUMMARY ADMISSION DATE: 03/29/18 DISCHARGE DATE: 03/30/18 DATE OF ADMISSION: 03/29/2018 DATE OF DISCHARGE: 03/30/2018 ADMISSION DIAGNOSES: 1. Active labor at term. 2. History of substance abuse. DISCHARGE DIAGNOSES: 1. Mother delivered at term. 2. History of substance abuse. 3. Compound presentation. PROCEDURE PERFORMED: Primary low transverse section. ATTENDING PHYSICIAN: Dr. Camacho. DISCHARGING PHYSICIAN: Dr. Sánchez. HISTORY OF PRESENT ILLNESS: See the H&P in the chart. SUMMARY OF HOSPITALIZATION: The patient was admitted to the hospital in active labor. The patient was found to have a compound presentation and received a section. At the time of discharge, the patient is voiding and tolerating a regular diet. The patient has only taken Toradol during this shift. The patient will be discharged home on Percocet and ibuprofen. The patient gave up to for adoption. A standard and postoperative precautions have been reviewed. Follow up at [facility] for staple removal at the end of this week. TRANSINT:[id number] Voice Confirmation ID: [id number] DOCUMENT ID: [id number] LAURA SÁNCHEZ MD at 0608 CC: [id number] DICTATION DATE: 03/30/18 1343 MANAGER MACHINE: 03/31/18 0021 DIS IN 03/30/18 [address] [id number] [place] [address]
[2018-04-01 06:10] LABS: RAPID PLASMA REAGIN Non Reactive (Non Reactive)
[2018-04-04 15:08] LABS: UDSC - AMPHET Positive (Cutoff=1000); UDSC - BARB Negative ng/mL (Cutoff=300); UDSC - BENZO Negative ng/mL (Cutoff=300); UDSC - COC Negative ng/mL (Cutoff=300); UDSC - METH Negative ng/mL (Cutoff=300); UDSC - OPIATES Negative ng/mL (Cutoff=300); UDSC - PCP Negative ng/mL (Cutoff=25); UDSC - PROPOXY Negative ng/mL (Cutoff=300); UDSC - THC Negative ng/mL (Cutoff=50)
--- NOTE | 2018-04-05 11:31 | MORECARE ---
CASE MANAGEMENT DISCHARGE SUMMARY PATIENT: ASUNCION POWELL UNIT: [id number] ADM DATE: 03/29/18 AGE: 22 : [birth year] SEX: F ROOM/BED: D.1273 AUTHOR: ANGELICA DUPREE PHYSICIAN: REFERRING PHYSICIAN: AB IGLESIAS MD DATE OF SERVICE: 04/05/18 Discharge Plan Patient Name: ASUNCION POWELL Facility: [facility]:[place] : 1995 Planned Disposition: Home Anticipated Discharge Date: 03/30/18 Discharge Date: 03/30/2018 Expected LOS: 1 Initial Reviewer: [email or web address] Initial Review Date: 03/30/2018 Generated: 04/05/18 12:31 pm Comments DCP- Discharge Planning Updated by [email or web address]: Caitlin Laura on 03/30/18 1:[address] Patient Name: ASUNCION POWELL Admission Status: Elective Accout number: [id number] Admission Date: 03-29-2018 : 1995 Admission Diagnosis: Attending: AB IGLESIAS Current LOS: 1 Anticipated DC Date: Planned Disposition: Primary Insurance: [place]ICAID [place] Discharge Planning Comments: CM RECEIVED A PHONE CALL FROM ANDREA HENSON FROM THE NURSERY. STATED MOB WAS LEAVING HOSPITAL, MOB IS DRUG POSITIVE AND BABY IS DRUG POSITIVE. SIXTO STATES THE BABY IS SUPPOSE TO BE ADOPTED. SIXTO CALLED [facility]REG[facility] TO CHECK ON INFORMATION ABOUT ADOPTION. I THEN SPOKE WITH ANDREA EASLEY IN LABOR AND DELIVERY AND SHE STATED MOB WAS ABOUT TO LEAVE THE HOSPITAL, SHE HAS ON AN ANKLE BRACELET. BABY IS NOT LEAVING WITH MOTHER AND NURSES STATED THE [facility] HAD BEEN NOTIFIED. I ASKED KAUSHAL IF THE PATIENT WOULD STAY LONG ENOUGH FOR ME TO COME AND INTERVIEW AND ASSES HER AND SHE STATED PATIENT WAS DETERMINED TO LEAVE NOW BUT THE [facility] HAS BEEN NOTIFIED. CM WILL FOLLOW AND ASSSIST NEEDED WITH DC PLANNING NEEDS. NURSES AND MEDICAL STAFF CAN REACH ME ON MY CELL PHONE IF NEEDED. HOUSE [employer]PER[employer]MIN[employer] HAVE MY NUMBER IN CASE IT GETS MISPLACED. NURSES STATE BABY WILL NOT BE DISCHARGED TODAY. Steeplechase Jockey: Caitlin Laura Last DP export: 03/30/18 2:01 Patient Name: ASUNCION POWELL Page [id number] at 1131 All edits/amendments must be made on the electronic document DICTATION DATE: 04/05/18 1130 AWS SOFTWARE DEVELOPMENT ENGINEER: BRIAN 04/05/18 1130 RPT#: [id number] DC DATE:03/30/18 STATUS: DIS IN [facility] [address] [facility] [place] [address] END OF REPORT
--- NOTE | 2018-04-21 16:44 | OP ---
PATIENT NAME: ASUNCION POWELL MEDICAL RECORD: [id number] :[birth year] LOCATION:[facility] D.1273 ADMISSION DATE:03/29/18 SURGEON: EDIL CAMACHO MD DATE OF OPERATION: 03/29/2018 PREOPERATIVE DIAGNOSES: 1. Term intrauterine , in active labor. 2. Compound presentation. POSTOPERATIVE DIAGNOSES: 1. Term intrauterine , in active labor. 2. Compound presentation. 3. Nuchal cord times 2-3 times. 4. Shortened umbilical cord causing tethering. PROCEDURE: Primary low transverse section. SURGEON: Edil Camacho MD ESTIMATED BLOOD LOSS: 1000 cc. INTRAVENOUS FLUID: Per anesthesia record. ANESTHESIA: Regional via epidural. COMPLICATIONS: None apparent. FINDINGS: 1. Viable , Apgars 9 at 1 and 9 at 5. 2. Nuchal cord times 2-3 times, preventing descent into the pelvis. 3. Grossly normal adnexa bilaterally. 4. Placenta delivered manually intact, 3-vessel cord noted. SPECIMENS: Placenta and cord for gases. PROCEDURE IN DETAIL: The patient was taken to the operating room, where regional anesthesia was achieved without any difficulty. The patient was then prepped and draped in normal sterile fashion in the dorsal supine position. A Lira catheter had already been placed and was draining freely. SCDs were on and functioning normally. Following prep and drape, a Pfannenstiel skin incision was made and extended downward to the underlying subcutaneous fat to level of the fascia, which was then excised in the midline and extended bilaterally using the Hernandez scissors. Superior and inferior aspects of the fascial incision were then grasped with Brian clamps times 2, tented upward, and sharply dissected from the underlying rectus muscle using the Hernandez scissors and the Bovie cautery. The rectus muscles were then bluntly in the midline and the peritoneum entered sharply at the superior aspect of the incision. A bladder blade was then placed into the pelvis and a bladder flap was created by excising the anterior leaf of the broad ligament across the lower uterine segment. The bladder blades were then replaced over the bladder flap and a low transverse incision was made with a scalpel. The uterus was entered with a finger and extended using the Pelosi method. The infant vertex and right arm were noted. The arm was pushed back and the vertex was then delivered followed by the body. Of note, a nuchal cord was noted 2-3 times around the neck, creating a tethering effect. This was released OPERATIVE REPORT [id number] ASUNCION POWELL immediately upon delivery of the . The infant was bulb suctioned. Cord was clamped times 2, cut, and infant was handed to awaiting nursery team. Cord was then obtained for gases. The placenta was removed manually intact. A 3-vessel cord was noted. The uterus was exteriorized, cleared of all clots and debris, and then repaired with #0 Vicryl in a running-locked fashion times 2. Posterior cul-de-sac was then thoroughly irrigated. Uterus was replaced into the pelvis. Counts were correct times 2 for sponges, needles, and instruments. The anterior cul-de-sac was then thoroughly irrigated and good hemostasis was noted. The fascia was repaired with #0 loop PDS and the skin was repaired with tim. The patient tolerated the procedure well, was transferred to postanesthesia recovery stable without incident. TRANSINT:[id number] Voice Confirmation ID: [id number] DOCUMENT ID: [id number] EDIL CAMACHO MD at 1644 CC: [id number] DICTATION DATE: 04/18/18 1355 AREA PLANT MANAGER: 04/18/18 1834 DIS IN 03/30/18 [facility] [address] [place] [address]
== END 2018-03-30 16:45 | disposition home or self-care (01) | DRG 787 ==
LOC: D.LD 13:52
PROVIDERS: ADMIT Obstetrics & Gynecology
PROC: 10D00Z1 Extraction of Products of Conception, Low, Open Approach (ICD-10-PCS; principal; 2018-03-29 16:38)
DX: O32.6XX0 Maternal care for compound presentation, not applicable or unspecified (principal); O98.32 Other infections with a predominantly sexual mode of transmission complicating childbirth; O98.22 Gonorrhea complicating childbirth; Z37.0 Single live birth; Z3A.39 39 weeks gestation of pregnancy; A56.8 Sexually transmitted chlamydial infection of other sites; Z91.19 Patient's noncompliance with other medical treatment and regimen; O99.334 Smoking (tobacco) complicating childbirth; F12.90 Cannabis use, unspecified, uncomplicated; O75.89 Other specified complications of labor and delivery

== ENCOUNTER 2018-04-01 18:12 | Emergency (ER) | payer SELFPAY ==
[~2018-04-01] VITALS: Ht 165.1 cm; Wt 79.5 kg
[~2018-04-01 18:12] MED LIST changes: +IBUPROFEN800 MG PO; +OXYCODONE-APAP1 T10 PO
[2018-04-01 18:14] VITALS: Ht 165.1 cm; Wt 79.5 kg
[2018-04-01 19:46] LABS: APPEARANCE CLOUDY (CLEAR); COLOR RED (YELLOW); GLUCOSE NEGATIVE (NEGATIVE); KETONE NEGATIVE (NEGATIVE); NITRITE NEGATIVE (NEGATIVE); PROTEIN 3+ mg/dL (NEGATIVE); SPECIFIC GRAVITY 1.005 (1.005-1.020)
[2018-04-01 19:47] LABS: AMORPHOUS SEDIMENT <1+ /lpf (NONE SEEN); BILIRUBIN NEGATIVE (NEGATIVE); EPITHELIAL CELLS 0-5 /hpf (0-5); RED CELLS - URINE 25-50 /hpf (0-5); UROBILINOGEN NORMAL (NORMAL); WHITE CELLS - URINE 0-5 /hpf (0-5)
[2018-04-01 20:51] VITALS: BP 152/99
== END 2018-04-01 20:52 | disposition home or self-care (01) ==
LOC: D.ER 18:12
PROVIDERS: Emergency Medicine
DX: G89.18 Other acute postprocedural pain (principal); K59.00 Constipation, unspecified; F17.200 Nicotine dependence, unspecified, uncomplicated